=== PATIENT | female | born 1965 | race Caucasian/White ===

== ENCOUNTER → 2016-07-02 | Outpatient (CLI) | payer OTHER ==
[2016-07-02 14:08] LABS: CALCIUM URINE 6.7 mg/dl
[2016-07-03 14:26] LABS: ALBUMIN 4.3 G/DL (3.8-4.8); TOTAL PROTEIN 6.7 G/DL (6.2-8.3)
== END | disposition home or self-care (01) ==
LOC: C.LABBC 11:08
PROVIDERS: ATTEND Internal Medicine Rheumatology
DX: M81.0 Age-related osteoporosis without current pathological fracture (principal); E61.8 Deficiency of other specified nutrient elements; E55.9 Vitamin D deficiency, unspecified

== ENCOUNTER → 2016-11-08 | Outpatient (CLI) | payer OTHER ==
--- NOTE | 2016-11-08 15:53 | MAMMOGRAPHY REPORT ---
BILATERAL DIGITAL SCREENING MAMMOGRAM TOMOSYNTHESIS WITH CAD: 11/08/2016 CLINICAL HISTORY: Routine screening. Patient has no complaints. TECHNIQUE: Breast tomosynthesis in addition to standard 2D mammography was performed. Current study was also evaluated with a Computer Aided Detection (CAD) system. COMPARISON: Comparison is made to exams dated: 11/08/2015 mammogram, 10/28/2014 mammogram, 10/27/2013 ma mmogram - [facility], 03/10/2010 mammogram, 03/09/2010 mammogram, and 02/23/2010 mammo gram. BREAST COMPOSITION: The tissue of both breasts is extremely dense, which lowers the sensitivity of mammography. FINDINGS: No suspicious masses, calcifications, or areas of architectural distortion are noted in e ither breast. There has been no significant interval change compared to prior exams. There are stab le post surgical changes in the right upper outer quadrant clinic architectural distortion from prio r excisional biopsy. Bilateral benign-appearing calcifications are not significantly changed. A be nign intramammary lymph node in the left superior breast is stable dating back to 2007. A benign oi l cyst is seen within the left lower inner quadrant. IMPRESSION: ACR BI-RADS CATEGORY 2: BENIGN There is no mammographic evidence of malignancy. A 1 year screening mammogram is recommended. The p atient will receive written notification of the results. Approximately 10% of breast cancers are not detected with mammography. A negative mammographic repor t should not delay biopsy if a clinically suggestive mass is present. Lou De La Cruz M.D. /:11/08/2016 14:30:20 Resident Surgeon: Jocelyn Edward, [facility] letter sent: Normal 1/2 BI-RADS Code: ACR BI-RADS Category 2: Benign
== END | disposition home or self-care (01) ==
LOC: C.MAMM 11:45
PROVIDERS: ATTEND Family Medicine
DX: Z12.31 Encounter for screening mammogram for malignant neoplasm of breast (principal)